=== PATIENT | male | born 1980 | race Caucasian/White ===

== ENCOUNTER 2017-08-12 05:09 | Inpatient (IN) | payer MEDICAID ==
[~2017-08-12] VITALS: Ht 180.3 cm; Wt 88.4 kg
[~2017-08-12 05:09] MED LIST: HYDR25TA11 PO
[2017-08-12] MEDS ORDERED: SODIUM CHLORIDE 0.9% 1,000 ML IV ONE (05:26)
[2017-08-12] MEDS ORDERED: SODIUM CHLORIDE 0.9% 1,000ML IVBOLUS ONE (05:30)
[2017-08-12] MEDS ORDERED: ONDANSETRON 2MG/ML, 2ML IVPush ONE (05:30)
[2017-08-12] MEDS ORDERED: THIAMINE 100MG TABLET PO ONE (05:30)
[2017-08-12] MEDS ORDERED: ONDANSETRON ODT 4 MG ONE (05:58)
[2017-08-12] MEDS ORDERED: THIAMINE 100MG TABLET ONE (05:58)
[2017-08-12] MEDS ORDERED: ONDANSETRON ODT 4 MG PO ONE (06:00)
[2017-08-12 06:07] LABS: ASPARTATE AMINO TRANSFERASE 148 U/L (15-37); BLOOD UREA NITROGEN 7 mg/dL (7-18)
[2017-08-12] MEDS ORDERED: LACTULOSE 20 GM/30 ML UDC PO ONE (06:30)
[2017-08-12 06:53] LABS: HEMATOCRIT 38.8 % (39.2-51.8); HEMOGLOBIN 13.7 g/dL (13.7-18.0)
[2017-08-12] MEDS ORDERED: POTASSIUM CHLORIDE 20 MEQ in SODIUM CHLORIDE 0.9% 1,000 ML IV ONE (07:02)
[2017-08-12] MEDS ORDERED: SODIUM CHLORIDE FLUSH 10ML SYR IVF PRN (07:30)
[2017-08-12] MEDS ORDERED: POTASSIUM CHLORIDE 20 MEQ, MAGNESIUM SULFATE 2 GM, THIAMINE 100 MG, MVI ADULT 10 ML, FO... IV SCH (07:31)
[2017-08-12] MEDS ORDERED: morphine SULFATE 10 MG/ML, 1ML IVPush PRN (08:00)
[2017-08-12] MEDS ORDERED: ONDANSETRON 2MG/ML, 2ML IVPush PRN (08:00)
[2017-08-12] MEDS ORDERED: POTASSIUM CHLORIDE 40 MEQ in SODIUM CHLORIDE 0.9% 500 ML IV ONE (08:00)
[2017-08-12] MEDS ORDERED: BISACODYL 10 MG SUPP PR PRN (08:00)
[2017-08-12] MEDS ORDERED: hydrALAzine 20 MG/ML, 1ML IVPush PRN (08:00)
[2017-08-12] MEDS: CHLORDIAZEPOXIDE 25 MG CAPSULE PO SCH ×4 (09:10→21:27)
[2017-08-12 09:13] VITALS: BP_SYST 165; BP_SYST 186; BP_DIAS 91; BP_DIAS 99
[2017-08-12] MEDS: LACTULOSE 3.3 GM/5 ML ORAL.SOL PO SCH ×2 (09:13→21:27)
[2017-08-12] MEDS: PANTOPRAZOLE 40 MG IV IVPush SCH (09:15)
[2017-08-12] MEDS: METHADONE 5 MG TABLET PO SCH ×3 (09:29→21:27)
[2017-08-12 12:11] LABS: DAU SCREEN DISCLAIMER
[2017-08-12] MEDS: prednisOLONE 15 MG/5 ML ORAL SOLN PO SCH (14:01)
[2017-08-12 15:13] VITALS: BP_SYST 156; BP_SYST 163; BP_DIAS 88; BP_DIAS 89
[2017-08-12] MEDS: POTASSIUM CHLORIDE 20 MEQ, MAGNESIUM SULFATE 2 GM, THIAMINE 100 MG, MVI ADULT 10 ML, FO... IV SCH (16:24)
[2017-08-12 17:31] VITALS: BP 166/94
[2017-08-12 19:08] VITALS: BP 166/102
[2017-08-12 21:20] VITALS: BP 159/87
[2017-08-12] MEDS: LORazepam 2 MG/ML, 1ML IVPush PRN (23:18)
[2017-08-13 01:25] VITALS: BP 162/97
[2017-08-13] MEDS: CHLORDIAZEPOXIDE 25 MG CAPSULE PO SCH ×4 (06:12→21:43)
[2017-08-13 06:14] LABS: ASPARTATE AMINO TRANSFERASE 97 U/L (15-37); BLOOD UREA NITROGEN 6 mg/dL (7-18)
[2017-08-13 06:43] LABS: HEMATOCRIT 34.5 % (39.2-51.8)
[2017-08-13 08:10] VITALS: BP 158/97
[2017-08-13] MEDS: LACTULOSE 20 GM/30 ML UDC PO SCH ×3 (09:23→21:44)
[2017-08-13] MEDS: METHADONE 5 MG TABLET PO SCH ×3 (09:24→21:43)
[2017-08-13] MEDS: PANTOPRAZOLE 40 MG IV IVPush SCH (09:26)
[2017-08-13] MEDS: prednisOLONE 15 MG/5 ML ORAL SOLN PO SCH (09:27)
[2017-08-13] MEDS ORDERED: SODIUM CHLORIDE 0.9% 500 ML IV SCH (10:30)
[2017-08-13] MEDS ORDERED: SODIUM CHLORIDE 0.9% 1,000 ML IV SCH (10:30)
[2017-08-13 13:30] VITALS: BP 165/98
[2017-08-13 20:53] VITALS: BP 151/90
[2017-08-13] MEDS: POTASSIUM CHLORIDE 20 MEQ, MAGNESIUM SULFATE 2 GM, THIAMINE 100 MG, MVI ADULT 10 ML, FO... IV SCH (21:44)
[2017-08-14 01:22] VITALS: BP 153/99
[2017-08-14 05:03] LABS: HEMATOCRIT 36.5 % (39.2-51.8); HEMOGLOBIN 12.6 g/dL (13.7-18.0)
[2017-08-14 05:12] LABS: BLOOD UREA NITROGEN 6 mg/dL (7-18)
[2017-08-14] MEDS: CHLORDIAZEPOXIDE 25 MG CAPSULE PO SCH ×4 (06:12→20:15)
[2017-08-14 07:48] VITALS: BP 161/92
[2017-08-14] MEDS: PANTOPRAZOLE 40 MG IV IVPush SCH (09:47)
[2017-08-14] MEDS: METHADONE 5 MG TABLET PO SCH ×3 (09:47→20:24)
[2017-08-14] MEDS: RIFAXIMIN 550 MG TABLET PO SCH ×2 (09:47→20:15)
[2017-08-14] MEDS: prednisOLONE 15 MG/5 ML ORAL SOLN PO SCH (09:47)
[2017-08-14] MEDS: LORazepam 2 MG/ML, 1ML IVPush PRN (10:17)
[2017-08-14 13:23] VITALS: BP 154/91
[2017-08-14] MEDS ORDERED: POTASSIUM CHLORIDE 20 MEQ, MAGNESIUM SULFATE 2 GM, THIAMINE 100 MG, MVI ADULT 10 ML in ... IV SCH (16:35)
[2017-08-14] MEDS: FOLIC ACID 1 MG TABLET PO SCH (20:15)
[2017-08-14 20:35] VITALS: BP 160/91
[2017-08-15 01:32] VITALS: BP 161/92
[2017-08-15] MEDS: CHLORDIAZEPOXIDE 25 MG CAPSULE PO SCH ×4 (05:06→21:19)
[2017-08-15 05:17] LABS: HEMOGLOBIN 12.7 g/dL (13.7-18.0); WHITE BLOOD COUNT 8.2 x10^3/uL (3.4-10)
[2017-08-15 05:48] LABS: ASPARTATE AMINO TRANSFERASE 66 U/L (15-37); BLOOD UREA NITROGEN 6 mg/dL (7-18)
[2017-08-15 06:45] VITALS: BP 141/86
[2017-08-15] MEDS: METHADONE 5 MG TABLET PO SCH ×3 (09:01→21:19)
[2017-08-15] MEDS: PANTOPRAZOLE 40 MG IV IVPush SCH (09:01)
[2017-08-15] MEDS: prednisOLONE 15 MG/5 ML ORAL SOLN PO SCH (09:01)
[2017-08-15] MEDS: RIFAXIMIN 550 MG TABLET PO SCH ×2 (09:01→21:19)
[2017-08-15 12:33] VITALS: BP 146/92
[2017-08-15] MEDS: FOLIC ACID 1 MG TABLET PO SCH (17:20)
[2017-08-15] MEDS: POTASSIUM CHLORIDE 20 MEQ, MAGNESIUM SULFATE 2 GM, THIAMINE 100 MG, MVI ADULT 10 ML in ... IV SCH (18:38)
[2017-08-15 19:35] VITALS: BP 132/79
[2017-08-16 02:37] VITALS: BP 146/84
[2017-08-16 04:42] LABS: HEMATOCRIT 38.5 % (39.2-51.8); HEMOGLOBIN 13.3 g/dL (13.7-18.0); WHITE BLOOD COUNT 10.1 x10^3/uL (3.4-10)
[2017-08-16 04:54] LABS: BLOOD UREA NITROGEN 8 mg/dL (7-18)
[2017-08-16] MEDS: CHLORDIAZEPOXIDE 25 MG CAPSULE PO SCH ×4 (05:20→20:54)
[2017-08-16 07:01] VITALS: BP 147/88
[2017-08-16] MEDS: prednisOLONE 15 MG/5 ML ORAL SOLN PO SCH (09:29)
[2017-08-16] MEDS: RIFAXIMIN 550 MG TABLET PO SCH ×2 (09:30→20:54)
[2017-08-16] MEDS: PANTOPRAZOLE 40 MG IV IVPush SCH (09:30)
[2017-08-16] MEDS: METHADONE 5 MG TABLET PO SCH ×3 (09:30→20:54)
[2017-08-16 12:59] VITALS: BP 153/99
[2017-08-16] MEDS: POTASSIUM CHLORIDE 20 MEQ, MAGNESIUM SULFATE 2 GM, THIAMINE 100 MG, MVI ADULT 10 ML in ... IV SCH (18:26)
[2017-08-16] MEDS: FOLIC ACID 1 MG TABLET PO SCH (18:26)
[2017-08-16 20:41] VITALS: BP 129/73
[2017-08-16] MEDS: LORazepam 2 MG/ML, 1ML IVPush PRN (23:36)
[2017-08-17 02:01] VITALS: BP 140/69
[2017-08-17] MEDS: CHLORDIAZEPOXIDE 25 MG CAPSULE PO SCH ×4 (05:03→21:51)
[2017-08-17 05:05] LABS: ASPARTATE AMINO TRANSFERASE 48 U/L (15-37); BLOOD UREA NITROGEN 10 mg/dL (7-18)
[2017-08-17 05:18] LABS: HEMATOCRIT 37.1 % (39.2-51.8); HEMOGLOBIN 12.9 g/dL (13.7-18.0); WHITE BLOOD COUNT 9.1 x10^3/uL (3.4-10)
[2017-08-17 07:05] VITALS: BP 132/80
[2017-08-17] MEDS: prednisOLONE 15 MG/5 ML ORAL SOLN PO SCH (09:05)
[2017-08-17] MEDS: PANTOPRAZOLE 40 MG IV IVPush SCH (09:05)
[2017-08-17] MEDS: RIFAXIMIN 550 MG TABLET PO SCH ×2 (09:05→21:51)
[2017-08-17] MEDS: METHADONE 5 MG TABLET PO SCH ×3 (09:05→21:51)
[2017-08-17 14:05] VITALS: BP 144/81
[2017-08-17] MEDS: FOLIC ACID 1 MG TABLET PO SCH (16:36)
[2017-08-17] MEDS: POTASSIUM CHLORIDE 20 MEQ, MAGNESIUM SULFATE 2 GM, THIAMINE 100 MG, MVI ADULT 10 ML in ... IV SCH (16:46)
[2017-08-17 19:52] VITALS: BP 123/78
[2017-08-18 01:18] VITALS: BP 139/85
[2017-08-18] MEDS: CHLORDIAZEPOXIDE 25 MG CAPSULE PO SCH ×4 (05:16→20:53)
[2017-08-18 05:29] LABS: HEMATOCRIT 33.4 % (39.2-51.8); HEMOGLOBIN 11.4 g/dL (13.7-18.0); WHITE BLOOD COUNT 6.3 x10^3/uL (3.4-10)
[2017-08-18 05:33] LABS: BLOOD UREA NITROGEN 11 mg/dL (7-18)
[2017-08-18 06:54] VITALS: BP 120/76
[2017-08-18] MEDS: PANTOPRAZOLE 40 MG IV IVPush SCH (07:56)
[2017-08-18] MEDS: prednisOLONE 15 MG/5 ML ORAL SOLN PO SCH (07:56)
[2017-08-18] MEDS: METHADONE 5 MG TABLET PO SCH ×3 (09:09→20:53)
[2017-08-18] MEDS: RIFAXIMIN 550 MG TABLET PO SCH ×2 (09:09→20:53)
[2017-08-18] MEDS: CITALOPRAM 20 MG TABLET PO SCH (09:09)
[2017-08-18 15:22] VITALS: BP 122/75
[2017-08-18] MEDS: FOLIC ACID 1 MG TABLET PO SCH (16:48)
[2017-08-18] MEDS: POTASSIUM CHLORIDE 20 MEQ, MAGNESIUM SULFATE 2 GM, THIAMINE 100 MG, MVI ADULT 10 ML in ... IV SCH (17:05)
[2017-08-18 19:49] VITALS: BP 130/79
[2017-08-19 01:28] VITALS: BP 130/70
[2017-08-19] MEDS: CHLORDIAZEPOXIDE 25 MG CAPSULE PO SCH ×2 (05:30→18:16)
[2017-08-19 05:38] LABS: HEMATOCRIT 35.6 % (39.2-51.8); HEMOGLOBIN 12.3 g/dL (13.7-18.0); WHITE BLOOD COUNT 6.2 x10^3/uL (3.4-10)
[2017-08-19 05:52] LABS: BLOOD UREA NITROGEN 12 mg/dL (7-18)
[2017-08-19 05:53] LABS: ASPARTATE AMINO TRANSFERASE 42 U/L (15-37)
[2017-08-19 07:14] VITALS: BP 115/73
[2017-08-19] MEDS: prednisOLONE 15 MG/5 ML ORAL SOLN PO SCH (07:59)
[2017-08-19] MEDS: PANTOPRAZOLE 40 MG IV IVPush SCH (08:00)
[2017-08-19] MEDS: RIFAXIMIN 550 MG TABLET PO SCH ×2 (08:00→21:09)
[2017-08-19] MEDS: CITALOPRAM 20 MG TABLET PO SCH (08:00)
[2017-08-19] MEDS: METHADONE 5 MG TABLET PO SCH (08:02)
[2017-08-19 12:34] VITALS: BP 149/78
[2017-08-19] MEDS: POTASSIUM CHLORIDE 20 MEQ, MAGNESIUM SULFATE 2 GM, THIAMINE 100 MG, MVI ADULT 10 ML in ... IV SCH (18:16)
[2017-08-19] MEDS: FOLIC ACID 1 MG TABLET PO SCH (18:16)
[2017-08-19 21:03] VITALS: BP 142/76
[2017-08-20 02:56] VITALS: BP 135/77
[2017-08-20] MEDS: CHLORDIAZEPOXIDE 25 MG CAPSULE PO SCH (05:39)
[2017-08-20 06:10] LABS: HEMATOCRIT 33.8 % (39.2-51.8); HEMOGLOBIN 11.4 g/dL (13.7-18.0); WHITE BLOOD COUNT 5.2 x10^3/uL (3.4-10)
[2017-08-20 06:18] LABS: BLOOD UREA NITROGEN 13 mg/dL (7-18)
[2017-08-20 08:48] VITALS: BP 116/70
[2017-08-20] MEDS: prednisOLONE 15 MG/5 ML ORAL SOLN PO SCH (08:54)
[2017-08-20] MEDS: PANTOPRAZOLE 40 MG IV IVPush SCH (08:54)
[2017-08-20] MEDS: RIFAXIMIN 550 MG TABLET PO SCH (08:54)
[2017-08-20] MEDS: CITALOPRAM 20 MG TABLET PO SCH (08:54)
[2017-08-20] MEDS ORDERED: PRED15SO3 PO (13:25)
[2017-08-20] MEDS ORDERED: CITA20TA9 PO (13:25)
[2017-08-20] MEDS ORDERED: PANT40GR PO (13:25)
[2017-08-20] MEDS ORDERED: MULT-658 PO (13:25)
[2017-08-20] MEDS ORDERED: FOLI-17 PO (13:25)
[2017-08-20] MEDS ORDERED: THIA100V3 PO (13:25)
[2017-08-20] MEDS ORDERED: RIFA550T4 PO (13:25)
== END 2017-08-20 14:09 | disposition home or self-care (01) | DRG 432 ==
LOC: ED 06:23 → EDIP 07:02 → 4WST 08:34
PROVIDERS: ADMIT Hospitalist; ATTEND Hospitalist
DX: K70.40 Alcoholic hepatic failure without coma (principal); K85.20 Alcohol induced acute pancreatitis without necrosis or infection; K70.10 Alcoholic hepatitis without ascites; F10.221 Alcohol dependence with intoxication delirium; D69.3 Immune thrombocytopenic purpura; D68.9 Coagulation defect, unspecified; D69.59 Other secondary thrombocytopenia; K76.6 Portal hypertension; F10.239 Alcohol dependence with withdrawal, unspecified; F10.288 Alcohol dependence with other alcohol-induced disorder; D64.9 Anemia, unspecified; E87.6 Hypokalemia; F12.90 Cannabis use, unspecified, uncomplicated; F17.200 Nicotine dependence, unspecified, uncomplicated; F32.9 Major depressive disorder, single episode, unspecified; I10 Essential (primary) hypertension; K70.30 Alcoholic cirrhosis of liver without ascites; R33.9 Retention of urine, unspecified; Z81.8 Family history of other mental and behavioral disorders; R74.0 Nonspecific elevation of levels of transaminase and lactic acid dehydrogenase [LDH]; Y90.9 Presence of alcohol in blood, level not specified
CPT/HCPCS: 36415; 71010; 76700; 80048; 80053; 80061; 80076; 80307; 81001; 82140; 83690; 83735; 83880; 84100; 84439; 84443; 85025; 85610; 85651; 85730; 93005; 99285; J2405; J3411; J3475; J3480; J7042; Q0162; C9113; G0479; J2060; J7040; J7510

== ENCOUNTER 2017-09-06 20:49 | Inpatient (IN) | payer MEDICAID ==
[~2017-09-06] VITALS: Ht 175.3 cm; Wt 92.1 kg
[~2017-09-06 20:49] MED LIST changes: +CITA20TA9 PO; +FOLI-17 PO; +HYDR10TA4 PO; +LACT20SO13 PO; +LURA20TA PO; +MULT-658 PO; +MULT1TAB60 PO; +PANT40GR PO; +PRED15SO3 PO; +PRED5TAB PO; +RIFA550T4 PO; +THIA100T6 PO; +THIA100V3 PO
[2017-09-06] MEDS ORDERED: SODIUM CHLORIDE FLUSH 10ML SYR IVF ONE (21:00)
[2017-09-06 21:33] LABS: ASPARTATE AMINO TRANSFERASE 129 U/L (15-37); BLOOD UREA NITROGEN 8 mg/dL (7-18)
[2017-09-06 21:35] LABS: HEMATOCRIT 28.8 % (39.2-51.8); HEMOGLOBIN 9.5 g/dL (13.7-18.0); WHITE BLOOD COUNT 3.5 x10^3/uL (3.4-10)
[2017-09-06] MEDS ORDERED: morphine SULFATE 10 MG/ML, 1ML ONE (21:43)
[2017-09-06 21:49] LABS: DIFF TOTAL CELLS COUNTED 100 CELL DIFF
[2017-09-06 21:52] LABS: ANISOCYTOSIS 1+; OVALOCYTES 1+; VERIFY COUNTS? YES
[2017-09-06] MEDS ORDERED: SPIRONOLACTONE 50 MG TABLET PO STA (22:34)
[2017-09-06] MEDS ORDERED: MORPHINE SULFATE 4 MG/ML, 1ML IVPush PRN (23:00)
[2017-09-06] MEDS ORDERED: AMPICILLIN/SULBACTAM 3 GM in SODIUM CHLORIDE 0.9% 100 ML IV ONE (23:30)
[2017-09-07] MEDS ORDERED: POLYETHYLENE GLYCOL 17 GM PACKET PO PRN
[2017-09-07] MEDS ORDERED: BISACODYL 10 MG SUPP PR PRN
[2017-09-07] MEDS ORDERED: ONDANSETRON 2MG/ML, 2ML IVPush PRN
[2017-09-07 00:39] LABS: FERRITIN 170.1 ng/mL (26-388)
[2017-09-07] MEDS: AMPICILLIN/SULBACTAM 3 GM in SODIUM CHLORIDE 0.9% 100 ML IV SCH ×4 (01:19→19:39)
[2017-09-07] MEDS: LACTULOSE 20 GM/30 ML UDC PO SCH ×3 (01:28→20:20)
[2017-09-07] MEDS: RIFAXIMIN 550 MG TABLET PO SCH ×3 (01:28→20:20)
[2017-09-07] MEDS ORDERED: FLU VACC QS2017-18 (36MOS+) UP/PF 0.5 ML IM-VACC ONE (01:30)
[2017-09-07 01:50] VITALS: BP 126/76
[2017-09-07 04:52] LABS: HEMATOCRIT 28.5 % (39.2-51.8); HEMOGLOBIN 9.6 g/dL (13.7-18.0)
[2017-09-07 04:56] LABS: ASPARTATE AMINO TRANSFERASE 104 U/L (15-37); BLOOD UREA NITROGEN 6 mg/dL (7-18)
[2017-09-07 05:46] LABS: DIFF TOTAL CELLS COUNTED 100 CELL DIFF
[2017-09-07 05:49] LABS: VERIFY COUNTS? YES
[2017-09-07 05:50] LABS: ANISOCYTOSIS 1+
[2017-09-07 05:51] LABS: OVALOCYTES 1+
[2017-09-07] MEDS: POTASSIUM CHLORIDE 20 MEQ TAB.ER.PRT PO SCH ×2 (07:49→16:37)
[2017-09-07] MEDS: THIAMINE 100MG TABLET PO SCH (07:49)
[2017-09-07] MEDS: SENNA/DOCUSATE TABLET PO SCH (07:49)
[2017-09-07] MEDS: SPIRONOLACTONE 50 MG TABLET PO SCH (07:50)
[2017-09-07] MEDS: MULTIVITAMIN 1 TABLET PO SCH (07:50)
[2017-09-07] MEDS: FOLIC ACID 1 MG TABLET PO SCH (07:50)
[2017-09-07] MEDS: SODIUM CHLORIDE FLUSH 10ML SYR IVF SCH ×3 (07:50→20:20)
[2017-09-07 07:54] VITALS: BP 117/73
[2017-09-07] MEDS: OXYcodone IR 5MG TABLET PO PRN (08:01)
[2017-09-07 13:59] VITALS: BP 122/72
[2017-09-07] MEDS: LURASIDONE 20 MG TABLET PO SCH (16:36)
[2017-09-07 19:55] VITALS: BP 112/60
[2017-09-08] MEDS: AMPICILLIN/SULBACTAM 3 GM in SODIUM CHLORIDE 0.9% 100 ML IV SCH ×4 (01:13→20:06)
[2017-09-08 02:15] VITALS: BP 113/63
[2017-09-08 06:15] VITALS: BP 103/54
[2017-09-08] MEDS: SENNA/DOCUSATE TABLET PO SCH (08:00)
[2017-09-08] MEDS: THIAMINE 100MG TABLET PO SCH (08:00)
[2017-09-08] MEDS: POTASSIUM CHLORIDE 20 MEQ TAB.ER.PRT PO SCH ×2 (08:01→17:02)
[2017-09-08] MEDS: FOLIC ACID 1 MG TABLET PO SCH (08:01)
[2017-09-08] MEDS: RIFAXIMIN 550 MG TABLET PO SCH ×2 (08:01→20:07)
[2017-09-08] MEDS: MULTIVITAMIN 1 TABLET PO SCH (08:01)
[2017-09-08] MEDS: SPIRONOLACTONE 50 MG TABLET PO SCH (08:01)
[2017-09-08] MEDS: LACTULOSE 20 GM/30 ML UDC PO SCH ×2 (08:01→20:07)
[2017-09-08] MEDS: SODIUM CHLORIDE FLUSH 10ML SYR IVF SCH ×2 (08:09→20:06)
[2017-09-08] MEDS: OXYcodone IR 5MG TABLET PO PRN ×2 (10:50→20:32)
[2017-09-08] MEDS: MAGNESIUM CHLORIDE 64 MG TABLET.DR PO SCH ×2 (10:50→20:07)
[2017-09-08] MEDS: FUROSEMIDE 20 MG TABLET PO SCH ×2 (10:50→17:02)
[2017-09-08] MEDS ORDERED: ERGOCALCIFEROL 50,000 UNIT CAPSULE PO SCH (15:00)
[2017-09-08] MEDS: LURASIDONE 20 MG TABLET PO SCH ×2 (17:03→18:13)
[2017-09-08 19:50] VITALS: BP 121/67
[2017-09-09] MEDS: OXYcodone IR 5MG TABLET PO PRN (00:15)
[2017-09-09] MEDS: AMPICILLIN/SULBACTAM 3 GM in SODIUM CHLORIDE 0.9% 100 ML IV SCH ×4 (01:58→21:10)
[2017-09-09 03:30] VITALS: BP 110/55
[2017-09-09 06:14] LABS: BLOOD UREA NITROGEN 7 mg/dL (7-18)
[2017-09-09 06:17] LABS: ASPARTATE AMINO TRANSFERASE 98 U/L (15-37)
[2017-09-09 07:39] VITALS: BP 129/71
[2017-09-09] MEDS: POTASSIUM CHLORIDE 20 MEQ TAB.ER.PRT PO SCH ×2 (08:06→16:54)
[2017-09-09] MEDS: FUROSEMIDE 20 MG TABLET PO SCH ×2 (08:06→16:54)
[2017-09-09] MEDS: THIAMINE 100MG TABLET PO SCH (08:07)
[2017-09-09] MEDS: SPIRONOLACTONE 50 MG TABLET PO SCH (08:07)
[2017-09-09] MEDS: FOLIC ACID 1 MG TABLET PO SCH (08:08)
[2017-09-09] MEDS: SENNA/DOCUSATE TABLET PO SCH (08:08)
[2017-09-09] MEDS: MULTIVITAMIN 1 TABLET PO SCH (08:08)
[2017-09-09] MEDS: MAGNESIUM CHLORIDE 64 MG TABLET.DR PO SCH ×2 (08:09→21:12)
[2017-09-09] MEDS: RIFAXIMIN 550 MG TABLET PO SCH ×2 (08:09→21:12)
[2017-09-09] MEDS: LACTULOSE 20 GM/30 ML UDC PO SCH ×2 (08:09→21:12)
[2017-09-09] MEDS: SODIUM CHLORIDE FLUSH 10ML SYR IVF SCH ×2 (08:10→21:11)
[2017-09-09 12:49] VITALS: BP 142/80
[2017-09-09] MEDS: LURASIDONE 20 MG TABLET PO SCH (16:54)
[2017-09-09 19:52] VITALS: BP 118/65
[2017-09-09] MEDS ORDERED: PHARMACOKINETIC MONITORING MC PRN (20:00)
[2017-09-09] MEDS ORDERED: PHARMACOKINETIC CONSULTATION MC ONE (20:00)
[2017-09-09] MEDS ORDERED: VANCOMYCIN PMX 1GM/200ML 200 ML IV ONE (20:00)
[2017-09-09] MEDS ORDERED: FUROSEMIDE 40 MG/4 ML IV ONE (20:00)
[2017-09-09] MEDS ORDERED: VANCOMYCIN PER PHARMACY MC PRN (20:00)
[2017-09-10] MEDS: VANCOMYCIN 1,600 MG in SODIUM CHLORIDE 0.9% 250 ML IV SCH ×2 (01:32→13:22)
[2017-09-10] MEDS: OXYcodone IR 5MG TABLET PO PRN ×3 (01:32→23:43)
[2017-09-10 02:09] VITALS: BP 105/56
[2017-09-10] MEDS: AMPICILLIN/SULBACTAM 3 GM in SODIUM CHLORIDE 0.9% 100 ML IV SCH ×4 (03:42→21:11)
[2017-09-10 06:27] LABS: BLOOD UREA NITROGEN 10 mg/dL (7-18)
[2017-09-10 07:45] VITALS: BP 119/76
[2017-09-10] MEDS: SENNA/DOCUSATE TABLET PO SCH (07:55)
[2017-09-10] MEDS: MULTIVITAMIN 1 TABLET PO SCH (07:55)
[2017-09-10] MEDS: MAGNESIUM CHLORIDE 64 MG TABLET.DR PO SCH ×2 (07:55→21:10)
[2017-09-10] MEDS: FOLIC ACID 1 MG TABLET PO SCH (07:55)
[2017-09-10] MEDS: THIAMINE 100MG TABLET PO SCH (07:55)
[2017-09-10] MEDS: RIFAXIMIN 550 MG TABLET PO SCH ×2 (07:56→21:10)
[2017-09-10] MEDS: POTASSIUM CHLORIDE 20 MEQ TAB.ER.PRT PO SCH ×2 (07:56→17:27)
[2017-09-10] MEDS: SPIRONOLACTONE 50 MG TABLET PO SCH (07:56)
[2017-09-10] MEDS: LACTULOSE 20 GM/30 ML UDC PO SCH ×2 (07:56→21:10)
[2017-09-10] MEDS: FUROSEMIDE 20 MG TABLET PO SCH ×2 (07:56→17:27)
[2017-09-10] MEDS: SODIUM CHLORIDE FLUSH 10ML SYR IVF SCH ×2 (07:57→21:12)
[2017-09-10 14:39] VITALS: BP 118/66
[2017-09-10] MEDS: LURASIDONE 20 MG TABLET PO SCH (16:03)
[2017-09-10 18:41] VITALS: BP 130/76
[2017-09-10] MEDS ORDERED: FUROSEMIDE 40 MG/4 ML IV ONE (19:30)
[2017-09-11 00:18] VITALS: BP 131/77
[2017-09-11] MEDS: VANCOMYCIN 1,600 MG in SODIUM CHLORIDE 0.9% 250 ML IV SCH ×2 (00:43→12:21)
[2017-09-11] MEDS: AMPICILLIN/SULBACTAM 3 GM in SODIUM CHLORIDE 0.9% 100 ML IV SCH ×3 (02:47→14:29)
[2017-09-11 05:13] LABS: BLOOD UREA NITROGEN 10 mg/dL (7-18)
[2017-09-11 05:17] LABS: ASPARTATE AMINO TRANSFERASE 81 U/L (15-37)
[2017-09-11 05:22] LABS: HEMATOCRIT 29.4 % (39.2-51.8); HEMOGLOBIN 9.6 g/dL (13.7-18.0)
[2017-09-11 05:52] LABS: DIFF TOTAL CELLS COUNTED 100 CELL DIFF
[2017-09-11 05:56] LABS: VERIFY COUNTS? YES
[2017-09-11 05:57] LABS: ANISOCYTOSIS 1+; POLYCHROMASIA 1+
[2017-09-11] MEDS: MAGNESIUM CHLORIDE 64 MG TABLET.DR PO SCH (08:26)
[2017-09-11] MEDS: SENNA/DOCUSATE TABLET PO SCH (08:26)
[2017-09-11] MEDS: RIFAXIMIN 550 MG TABLET PO SCH (08:26)
[2017-09-11] MEDS: THIAMINE 100MG TABLET PO SCH (08:26)
[2017-09-11] MEDS: LACTULOSE 20 GM/30 ML UDC PO SCH (08:26)
[2017-09-11] MEDS: FOLIC ACID 1 MG TABLET PO SCH (08:27)
[2017-09-11] MEDS: MULTIVITAMIN 1 TABLET PO SCH (08:27)
[2017-09-11] MEDS: FUROSEMIDE 20 MG TABLET PO SCH ×2 (08:27→17:12)
[2017-09-11] MEDS: POTASSIUM CHLORIDE 20 MEQ TAB.ER.PRT PO SCH ×2 (08:27→17:12)
[2017-09-11] MEDS: SPIRONOLACTONE 50 MG TABLET PO SCH (08:27)
[2017-09-11] MEDS: SODIUM CHLORIDE FLUSH 10ML SYR IVF SCH (08:28)
[2017-09-11 09:30] VITALS: BP 121/78
[2017-09-11] MEDS ORDERED: MULT1TAB60 PO (13:05)
[2017-09-11] MEDS ORDERED: RIFA550T4 PO (13:05)
[2017-09-11] MEDS ORDERED: AMOX1TAB64 PO (13:05)
[2017-09-11] MEDS ORDERED: LACT20SO13 PO (13:05)
[2017-09-11] MEDS ORDERED: SPIR50TA PO (13:05)
[2017-09-11] MEDS ORDERED: HYDR25TA11 PO (13:05)
[2017-09-11] MEDS ORDERED: FURO20TA3 PO (13:05)
[2017-09-11] MEDS ORDERED: PRED5TAB PO (13:05)
[2017-09-11] MEDS ORDERED: MAGN64TA9 PO (13:05)
[2017-09-11] MEDS ORDERED: POTA20TA6 PO (13:05)
[2017-09-11] MEDS ORDERED: ERGO500017 PO (13:05)
[2017-09-11] MEDS ORDERED: THIA100T6 PO (13:05)
[2017-09-11] MEDS ORDERED: LURA20TA PO (13:05)
[2017-09-11] MEDS ORDERED: FOLI-17 PO (13:05)
[2017-09-11 13:37] VITALS: BP 125/75
[2017-09-11] MEDS: LURASIDONE 20 MG TABLET PO SCH (15:48)
== END 2017-09-11 18:10 | disposition home or self-care (01) | DRG 603 ==
LOC: ED 21:42 → EDIP 23:15 → 4NOR 09-07 00:36
PROVIDERS: ADMIT Internal Medicine; ATTEND Internal Medicine
DX: L03.115 Cellulitis of right lower limb (principal); D68.9 Coagulation defect, unspecified; D69.59 Other secondary thrombocytopenia; E44.0 Moderate protein-calorie malnutrition; E87.5 Hyperkalemia; L03.116 Cellulitis of left lower limb; D50.9 Iron deficiency anemia, unspecified; D53.9 Nutritional anemia, unspecified; E55.9 Vitamin D deficiency, unspecified; F10.21 Alcohol dependence, in remission; F31.9 Bipolar disorder, unspecified; K70.30 Alcoholic cirrhosis of liver without ascites; K72.10 Chronic hepatic failure without coma; Z87.891 Personal history of nicotine dependence; Z68.30 Body mass index [BMI] 30.0-30.9, adult
CPT/HCPCS: 36415; 71010; 80048; 80053; 81003; 82140; 82607; 82728; 82746; 83540; 83550; 83735; 85025; 85610; 85730; 90686; 93005; 99285; J0295; J1940; J3370; J7050; J7512; Q0177

== ENCOUNTER 2018-11-04 11:56 | Emergency (ER) | payer MEDICAID, OTHER ==
[~2018-11-04] VITALS: Ht 177.8 cm; Wt 82.3 kg
[~2018-11-04 11:56] MED LIST changes: +AMOX1TAB64 PO; +ERGO500017 PO; +FURO20TA3 PO; +MAGNESIUM DR64 MG PO; +POTA20TA6 PO; +SPIR50TA PO; -THIA100T6 PO; +THIA100T67 PO
[2018-11-04 13:23] LABS: ALANINE AMINOTRANSFERASE 49 U/L (12-78); ALBUMIN 3.3 g/dL (3.4-5.0); ANION GAP 4 mmol/L (5-15); CALCIUM 8.8 mg/dL (8.5-10.1); CHLORIDE 105 mmol/L (98-107); CREATININE 0.75 mg/dL (0.7-1.3)
[2018-11-04 13:26] LABS: % IRON SATURATION 65 % (20-55); ALKALINE PHOSPHATASE 191 U/L (45-117); IRON LEVEL 213 mcg/dL (65-175); TOTAL IRON BINDING CAPACITY 329 mcg/dL (250-450); TOTAL PROTEIN 7.6 g/dL (6.4-8.2)
[2018-11-04 13:28] LABS: MEAN CORPUSCULAR HEMOGLOBIN 35.4 pg (27.5-34.5); MEAN CORPUSCULAR HGB CONC 34.4 g/dL (33.2-36.2); MEAN CORPUSCULAR VOLUME 102.9 fL (81-97); MEAN PLATELET VOLUME 6.8 fL (7.4-10.4); PLATELET COUNT 74 x10^3/uL (130-400); RED BLOOD COUNT 4.25 x10^6/uL (4.38-5.82); RED CELL DISTRIBUTION WIDTH 14.5 % (9.4-14.8)
[2018-11-04 13:31] LABS: BASOPHILS # (AUTO) 0.01 x10^3/uL (0-0.1); BASOPHILS % (AUTO) 0 % (0-1); EOSINOPHILS # (AUTO) 0.05 x10^3/uL (0-0.4); EOSINOPHILS % (AUTO) 1 % (1-7); LYMPHOCYTES % (AUTO) 26 % (22-44); MD SCAN; MONOCYTES # (AUTO) 0.49 x10^3/uL (0.2-0.8); MONOCYTES % (AUTO) 12 % (2-9); NEUTROPHILS # (AUTO) 2.59 x10^3/uL (1.8-6.8); NEUTROPHILS % (AUTO) 61 % (42-75)
[2018-11-04 14:18] VITALS: BP 118/79
== END 2018-11-04 14:28 | disposition home or self-care (01) ==
LOC: ED 14:22
DX: R00.0 Tachycardia, unspecified (principal); R79.9 Abnormal finding of blood chemistry, unspecified; F12.10 Cannabis abuse, uncomplicated
CPT/HCPCS: 36415; 80053; 83540; 83550; 85025; 99283